=== PATIENT | female | born 1960 | race Caucasian/White ===

== ENCOUNTER → 2017-04-14 | Outpatient (CLI) | payer BC ==
--- NOTE | 2017-04-14 15:13 | KCIC ---
Bilateral digital screening mammograms: Reason for examination: Routine screening. Comparison is made to previous studies dated 12/18/2015 and 06/25/2013. The skin and nipples show no abnormalities. No abnormal axillary lymph nodes are seen. The breast parenchyma shows scattered fibroglandular density. (Breast density: Category B.) There continues to be some patchy asymmetry at the 3:00 position of the left breast which is unchanged. There are no new dominant masses, suspicious calcifications or architectural distortions. Biopsy clip remains present on the right. Impression: No evidence of malignancy. Recommend routine screening. BI-RADS Category 2: Benign. "Our facility is accredited by the [employer] Mammography Program." This patient's information has been entered into a reminder system for the patient to be notified with the results of her examination and a target date for the next mammogram. Electronically signed by: Carrol Hamilton MD (04/14/2017 3:10 PM) [id number]
== END | disposition home or self-care (01) ==
LOC: KCIC MAMMO 10:54
PROVIDERS: ATTEND Obstetrics & Gynecology
DX: Z12.31 Encounter for screening mammogram for malignant neoplasm of breast (principal)
CPT/HCPCS: G0202; 77067

== ENCOUNTER → 2018-10-05 | Outpatient (CLI) | payer BC ==
--- NOTE | 2018-10-05 13:29 | KCIC ---
Bilateral digital screening mammograms with 3-D tomosynthesis: Reason for examination: Routine screening. Comparison is made to previous studies dated back to 06/25/2013. Bilateral mammograms in CC and oblique projections were obtained with 2-D imaging and 3-D tomosynthesis imaging on a Siemens Inspiration unit and reviewed on the workstation. Interpretation was made with the benefit of CAD. The skin and nipples show no abnormalities. No abnormal axillary lymph nodes are seen. The breast parenchyma shows scattered fatty and fibroglandular density. (Breast density: Category B.) There appears to be some increased nodularity in the subareolar position of the left breast. 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 There are no other dominant masses, suspicious calcifications or architectural distortion. Biopsy clip remains present on the right. Impression: Increased nodularity in the subareolar position of the left breast. 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 BI-RADS Category 0: Incomplete. Needs additional imaging evaluation. "Our facility is accredited by the [employer] Mammography Program." This patient's information has been entered into a reminder system for the patient to be notified with the results of her examination and a target date for the next mammogram. Electronically signed by: Carrol Hamilton MD (10/05/2018 1:26 PM) [id number]
== END | disposition home or self-care (01) ==
LOC: KCIC MAMMO 09:37
PROVIDERS: ATTEND Obstetrics & Gynecology
DX: Z12.31 Encounter for screening mammogram for malignant neoplasm of breast (principal)
CPT/HCPCS: 77063; 77067

== ENCOUNTER → 2018-10-24 | Outpatient (CLI) | payer BC ==
--- NOTE | 2018-10-24 11:27 | KCIC ---
Indication: Chronic bilateral hip pain. No injury TECHNIQUE: Total 4 views of the bilateral hips COMPARISON: None FINDINGS: Right hip: No acute fracture or dislocation. No significant joint space narrowing. Mild osteoarthritis. SI joints within normal limits. Left hip: No acute fracture-dislocation. No significant joint space narrowing. Mild osteoarthritis. SI joints within normal limits. IMPRESSION: Mild bilateral hip joint arthritis. Electronically signed by: Dudley Corado DO (10/24/2018 11:25 AM) [facility]
--- NOTE | 2018-10-24 11:27 | KCIC ---
Indication: Chronic bilateral hip pain. No injury TECHNIQUE: Total 4 views of the bilateral hips COMPARISON: None FINDINGS: Right hip: No acute fracture or dislocation. No significant joint space narrowing. Mild osteoarthritis. SI joints within normal limits. Left hip: No acute fracture-dislocation. No significant joint space narrowing. Mild osteoarthritis. SI joints within normal limits. IMPRESSION: Mild bilateral hip joint arthritis. Electronically signed by: Dudley Corado DO (10/24/2018 11:25 AM) [facility]
--- NOTE | 2018-10-24 16:06 | KCIC ---
Bone densitometry 10/24/2018 11:03 AM Indication: Postmenopausal screening exam. Loss of height. Comparison Study: None available. Discussion: Bone Densitometry was performed with dual photon absorption of the lumbar spine and left proximal femur Lumbar Spine: Bone average density is 0.999g/cm2 for L1-L4. T-Score is -0.4. Left proximal femur: Bone average density is 0.80g/cm2. T-Score is -0.5. IMPRESSION: Normal bone mineral density Note: Definitions established by the [employer] Organization: Normal: T-score is -1.0 or above. Osteopenia: T-score is between -1.0 and -2.5. Osteoporosis: T-score is -2.5 or below. Electronically signed by: Herson Solano MD (10/24/2018 4:03 PM) [id number]
== END | disposition home or self-care (01) ==
LOC: KCIC DEXA 10:14
PROVIDERS: ATTEND Family Medicine
DX: M13.852 Other specified arthritis, left hip (principal); M13.851 Other specified arthritis, right hip; R29.890 Loss of height; Z82.62 Family history of osteoporosis; Z84.89 Family history of other specified conditions; Z78.0 Asymptomatic menopausal state
CPT/HCPCS: 73502; 77080